=== PATIENT | male | born 1950 | race Caucasian/White ===

== ENCOUNTER 2024-05-08 11:37 | Inpatient (IN) | payer MEDICARE ==
[2024-05-08] MEDS: DEXTROSE 50% SYRINGE 50 ML IVP STA ×2 (11:40→13:37)
[2024-05-08 11:55] LABS: Glucose,Whole Blood 317 mg/dL (70-110)
[2024-05-08] MEDS: SODIUM CHLORIDE 0.9% 1,000 ML IV ONE ×3 (12:09→13:35)
[2024-05-08 12:16] LABS: Anisocytosis Slight; Basophils # (A) 0.1 k/uL (0-0.2); Basophils % (A) 1 %; Eosinophils # (A) 0.1 k/uL (0-0.7); Eosinophils % (A) 1 %; HCT 20.4 % (39.0-53.0); Hypochromasia Marked; Lymphocytes # (A) 2.5 k/uL (1.0-4.8); Lymphocytes % (A) 30 %; MCH 30.2 pg (25.0-35.0); MCHC 31.2 g/dL (31.0-37.0); MCV 96.8 fL (80.0-100.0); Mean Platelet Volume 12.2; Monocytes # (A) 0.3 k/uL (0-1.0); Monocytes % (A) 4 %; Neutrophils # (A) 5.4 k/uL (1.3-7.7); Neutrophils % (A) 63 %; Poikilocytosis Slight; RBC 2.11 m/uL (4.30-5.90); RDW 16.2 % (11.5-15.5); WBC 8.5 k/uL (3.8-10.6)
[2024-05-08 12:23] LABS: Albumin 2.9 g/dL (3.5-5.0); Alcohol 10 mg/dL; Anion Gap 26 mmol/L; Blood Urea Nitrogen 62 mg/dL (9-20); Calcium 8.9 mg/dL (8.4-10.2); Chloride 104 mmol/L (98-107); Glucose 263 mg/dL (74-99); Sodium 136 mmol/L (137-145); Total Bilirubin 2.8 mg/dL (0.2-1.3); Total Protein 4.6 g/dL (6.3-8.2)
[2024-05-08 12:25] LABS: ABG Base Excess -23.1 mmol/L; ABG PCO2 27 mmHg (35-45); ABG PO2 183 mmHg (83-108); ABG TCO2 7 mmol/L (19-24); Allen Test Performed? Yes
[2024-05-08 12:28] LABS: African American GFR (CKD) 26 (>60 ml/min/1.73 sqM); Non-African American GFR(CKD) 22 (>60 ml/min/1.73 sqM)
[2024-05-08 12:29] LABS: Glucose,Whole Blood 163 mg/dL (70-110)
[2024-05-08 12:33] LABS: ABG HCO3 6 mmol/L (21-25); ABG PH 6.98 (7.35-7.45)
[2024-05-08 12:35] LABS: INR 2.3 (<1.2); Partial Thromboplastin Time 29.8 sec (22.0-30.0); Prothrombin Time 22.9 sec (10.0-12.5)
[2024-05-08 12:42] LABS: HGB 6.4 gm/dL (13.0-17.5)
[2024-05-08 12:49] LABS: Bacteria,Urine Occasional /hpf; Mucus,Urine Rare /hpf; RBC,Urine 43 /hpf (0-5); Squamous Epithelial Cell,Urine 1 /hpf (0-4); WBC,Urine 5 /hpf (0-5)
[2024-05-08 13:01] LABS: ALT 666 U/L (4-49); AST 1113 U/L (17-59); Alkaline Phosphatase 939 U/L (38-126)
[2024-05-08 13:03] LABS: Carbon Dioxide 6 mmol/L (22-30); Creatine Kinase 4444 U/L (55-170); Magnesium 6.5 mg/dL (1.6-2.3); Potassium 6.9 mmol/L (3.5-5.1)
[2024-05-08 13:13] LABS: Amphetamine Screen,Urine Not Detected (NotDetected); Barbiturate Screen,Urine Not Detected (NotDetected); Benzodiazepines Screen,Urine Not Detected (NotDetected); Cocaine Screen,Urine Not Detected (NotDetected); Methadone Screen, Urine Not Detected (NotDetected); Opiate Screen,Urine Not Detected (NotDetected); Oxycodone Screen, Urine Not Detected (NotDetected); Phencyclidine Screen,Urine Not Detected (NotDetected); Tricyclic Antidepressant,Urine Not Detected (NotDetected); Urn Cannabinoid Scrn Not Detected (NotDetected)
[2024-05-08] MEDS: SODIUM CHLORIDE 0.9% 1,000 ML IV SCH (13:15)
[2024-05-08] MEDS: INSULIN REGULAR 100 UNIT in SODIUM CHLORIDE 0.9% 100 ML IV SCH (13:15)
[2024-05-08 13:17] LABS: Glucose,Whole Blood 145 mg/dL (70-110)
[2024-05-08 13:26] LABS: RBC Fragments Present
[2024-05-08 13:28] LABS: Anisocytosis (M) Present; Platelet Count 42 k/uL (150-450); Poikilocytosis (M) Present; Polychromasia Present
--- NOTE | 2024-05-08 13:33 | XR ---
EXAMINATION TYPE: XR chest 1V portable DATE OF EXAM: 05/08/2024 1:28 PM COMPARISON: None CLINICAL INDICATION: Male, 73 years old with history of unresponsive, pain FINDINGS: Leftward patient rotation alters the normal cardiac and mediastinal contours. Heart appears upper [place] its of normal. Diffuse interstitial and patchy bilateral opacities. IMPRESSION: Diffuse interstitial and patchy bilateral opacities. Consider sequela of CHF with interstitial pulmon gilberto edema versus interstitial pneumonitis or multifocal vs atypical pneumonia. [facility], Workstation: [email or web address], 05/08/2024 1:31 PM
--- NOTE | 2024-05-08 13:34 | ED ---
General Adult HPI - General Chief complaint: Recheck/Abnormal Lab/Rx Stated complaint: Hyperglycemia Time Seen by Provider: 05/08/24 11:37 Source: patient, EMS, RN notes reviewed, old records reviewed Mode of arrival: EMS - History of Present Illness Initial comments: This is a 73-year-old male who presents to the emergency department after having been found down by family members. According to the family the patient was last seen 2 days ago. Patient was unresponsive when family member arrived and family states that the patient is a DNR and does not want CPR or intubation. Patient has a history of a stroke according to family he takes no medication. - Related Data Home Medications Medication Instructions Recorded Confirmed No Known Home Medications 05/08/24 05/08/24 Allergies Allergy/AdvReac Type Severity Reaction Status Date / Time No Known Allergies Allergy Verified 05/08/24 15:16 Review of Systems ROS Statement: Those systems with pertinent positive or pertinent negative responses have been documented in the HPI. ROS Other: All systems not noted in ROS Statement are negative. Past Medical History Past Medical History: Unable to Obtain, CVA/TIA History of Any Multi-Drug Resistant Organisms: Unobtainable Additional Past Surgical History / Comment(s): AAA Past Psychological History: Unable to Obtain Smoking Status: Unknown if ever smoked General Exam - General Exam Comments Initial Comments: GENERAL: Patient is completely unresponsive and does appear somewhat cachectic ENT: Neck is soft and supple. No significant lymphadenopathy is noted. Oropharynx is clear. Dry mucous membranes. Neck has full range of motion without eliciting any pain. EYES: The sclera were anicteric and conjunctiva were pink and moist. Extraocular movements were intact and pupils were equal round and reactive to light. Eyelids were unremarkable. PULMONARY: Unlabored respirations. Good breath sounds bilaterally. No audible rales rhonchi or wheezing was noted. CARDIOVASCULAR: There is a regular rate and rhythm without any murmurs gallops or rubs. ABDOMEN: Soft and nontender with normal bowel sounds. SKIN: Patient has multiple bruises on his extremities NEUROLOGIC: Patient is unresponsive and was a GCS of 3 at the scene however he does at this time grimace to painful stimuli MUSCULOSKELETAL: Unable to assess range of motion of his extremities however no gross abnormalities are noted PSYCHIATRIC: Unable to do at this time Course Vital Signs 05/08/24 05/08/24 05/08/24 11:40 11:56 12:06 Temperature 84.7 F L Pulse Rate 88 68 63 Respiratory 22 20 Rate Blood Pressure 129/50 114/56 O2 Sat by Pulse Oximetry 05/08/24 05/08/24 05/08/24 12:17 12:30 13:10 Temperature 85.1 F L 85.3 F L 87.3 F L Pulse Rate 67 70 79 Respiratory 16 18 18 Rate Blood Pressure 77/57 85/67 63/36 O2 Sat by Pulse 99 Oximetry 05/08/24 05/08/24 05/08/24 13:15 13:35 13:47 Temperature 87.6 F L 89.4 F L 89.8 F L Pulse Rate 81 89 90 Respiratory 20 22 22 Rate Blood Pressure 73/37 55/32 75/52 O2 Sat by Pulse 94 L 93 L Oximetry 05/08/24 05/08/24 05/08/24 13:56 14:09 14:11 Temperature 90.5 F L 91.6 F L Pulse Rate 88 84 Respiratory 22 24 Rate Blood Pressure 83/50 71/39 67/41 O2 Sat by Pulse 94 L Oximetry 05/08/24 05/08/24 05/08/24 14:15 14:27 14:31 Temperature 92.3 F L 92.8 F L 93.2 F L Pulse Rate 87 98 95 Respiratory 22 22 22 Rate Blood Pressure 57/43 52/35 68/37 O2 Sat by Pulse 91 L Oximetry 05/08/24 05/08/24 05/08/24 14:35 14:41 14:46 Temperature 93.4 F L 93.9 F L 94.3 F L Pulse Rate 101 H 108 H 103 H Respiratory 22 22 20 Rate Blood Pressure 59/39 63/48 59/41 O2 Sat by Pulse 88 L 90 L 93 L Oximetry 05/08/24 05/08/24 05/08/24 14:51 14:56 15:01 Temperature 94.5 F L 95.0 F L 95.2 F L Pulse Rate 81 85 86 Respiratory 20 20 20 Rate Blood Pressure 106/50 108/55 112/56 O2 Sat by Pulse 93 L 94 L 94 L Oximetry 05/08/24 05/08/24 05/08/24 15:09 15:17 15:25 Temperature 96.3 F L Pulse Rate 88 90 92 Respiratory 18 18 18 Rate Blood Pressure 104/55 103/54 81/53 O2 Sat by Pulse 95 95 95 Oximetry 05/08/24 05/08/24 05/08/24 15:36 15:38 15:42 Temperature 97.5 F L Pulse Rate 95 Respiratory 18 Rate Blood Pressure 104/91 133/121 O2 Sat by Pulse 95 Oximetry 05/08/24 05/08/24 05/08/24 15:47 15:52 16:14 Temperature 97.7 F 97.7 F 99.0 F Pulse Rate 93 94 95 Respiratory 20 20 20 Rate Blood Pressure 92/50 94/49 89/48 O2 Sat by Pulse 95 95 95 Oximetry 05/08/24 16:27 Temperature 99.1 F Pulse Rate 96 Respiratory 20 Rate Blood Pressure 85/53 O2 Sat by Pulse 95 Oximetry Procedures - [place] Protocol (Time Out) Nurse: Farnaz Bishop Medical Decision Making - Medical Decision Making EKG is interpreted by myself. EKG shows atrial fibrillation at 72 bpm QRS is 96 QT interval is 473 QTc is 496. Patient's EKG shows no ST segment elevation. Was pt. sent in by a medical professional or institution (, PA, WATER/WASTEWATER PROJECT MANAGER, urgent care, hospital, or half-way...) When possible be specific @ -No Did you speak to anyone other than the patient for history (EMS, parent, family, police, friend...)? What history was obtained from this source @ -No Did you review nursing and triage notes (agree or disagree)? Why? @ -I reviewed and agree with nursing and triage notes Were old charts reviewed (outside hosp., previous admission, EMS record, old EKG, old radiological studies, urgent care reports/EKG's, half-way records)? Report findings @ -No old charts were reviewed Differential Diagnosis? @ -Differential Altered Mental Status: Hypoglycemia, DKA, hypercapnia, ETOH, overdose, CO poisoning, trauma, myxedema coma, HTN encephalopathy, infection, encephalitis, psychosis, intercranial hemorrhage, hepatic encephalopathy, meningitis, CVA, this is not meant to be an all-inclusive list EKG interpreted by me (3pts min.). @ -As above X-rays interpreted by me (1pt min.). @ -Chest x-ray shows no acute abnormality CT interpreted by me (1pt min.). @ -CT of the brain shows no acute abnormality. CT of the C-spine shows a T1 spinous process fracture. U/S interpreted by me (1pt. min.). @ -None done What testing was considered but not performed or refused? (CT, X-rays, U/S, labs)? Why? @ -None What meds were considered but not given or refused? Why? @ -None Did you discuss the management of the patient with other professionals (professionals i.e. , PA, WATER/WASTEWATER PROJECT MANAGER, lab, RT, psych nurse, 7th grade social studies teacher, customer servicer, teacher, artillery officer, outsole caser)? Give summary @ -Dr. Woods agreed to admit the patient. I spoke with Dr. Payan for critical care management. Was smoking cessation discussed for >3mins.? @ -No Was critical care preformed (if so, how long)? @ -60 minutes Were there social determinants of health that impacted care today? How? (Homele ssness, low income, unemployed, alcoholism, drug addiction, transportation, low edu. Level, literacy, decrease access to med. care, detention, rehab)? @ -No Was there de-escalation of care discussed even if they declined (Discuss DNR or withdrawal of care, Hospice)? DNR status @ -No What co-morbidities impacted this encounter? (DM, HTN, Smoking, COPD, CAD, Cancer, CVA, ARF, Chemo, Hep., AIDS, mental health diagnosis, sleep apnea, morbid obesity)? @ -None Was patient admitted / discharged? Hospital course, mention meds given and route, prescriptions, significant lab abnormalities, going to OR and other pertinent info. @ -Patient had numerous lab abnormalities patient had rhabdomyolysis, patient wa s anemic and was given 1 unit of packed red blood cells, patient was acidotic with a 6.9 pH, patient had elevated creatinine, patient was hypothermic and placed on a plane control with a bear hugger until the temperature came up to 90 degrees, patient was hypoglycemic end given multiple doses of D50, patient's troponin was mildly elevated, patient's liver enzymes and ammonia are elevated ammonia was 155 and was given lactulose, patient's lactic acid was 21, patient had thrombocytopenia with platelets of 42, patient's potassium was 6.9 and was given bicarb D50 insulin calcium chloride, patient's mag was 6.5 family states the patient has been drinking a lot of magnesium citrate. Family did not want the patient to be have CPR or to be intubated. Patient used to be a drinker but they do not believe he is drinking anymore. Patient was a GCS of 3 on arrival soon thereafter was responding to some painful stimuli after hours of being here patient was verbally responding to me however not make any sense at this time. CAT scans were normal except with his T1 fracture. Patient will be admitted to the ICU Undiagnosed new problem with uncertain prognosis? @ -No Drug Therapy requiring intensive monitoring for toxicity (Heparin, Nitro, Insulin, Cardizem)? @ -No Were any procedures done? @ -No Diagnosis/symptom? @ -Rhabdomyolysis Acute, or Chronic, or Acute on Chronic? @ -Acute Uncomplicated (without systemic symptoms) or Complicated (systemic symptoms)? @ -Complicated Side effects of treatment? @ -No Exacerbation, Progression, or Severe Exacerbation? @ -No Poses a threat to life or bodily function? How? (Chest pain, [place], HI, pneumonia, PE, COPD, DKA, ARF, appy, cholecystitis, CVA, Diverticulitis, Homicidal, Suicidal, threat to staff... and all critical care pts) @ -Yes this could lead to renal failure and endorgan dysfunction Diagnosis/symptom? @ -Anemia Acute, or Chronic, or Acute on Chronic? @ -Acute Uncomplicated (without systemic symptoms) or Complicated (systemic symptoms)? @ -Complicate Side effects of treatment? @ -None Exacerbation, Progression, or Severe Exacerbation] @ -No Poses a threat to life or bodily function? @ -Yes this could lead to hypoxia and endorgan dysfunction Diagnosis/symptom? @ -Hypothermic Acute, or Chronic, or Acute on Chronic? @ -Acute Uncomplicated (without systemic symptoms) or Complicated (systemic symptoms)? @ -Complicated Side effects of treatment? @ -None Exacerbation, Progression, or Severe Exacerbation] @ -No Poses a threat to life or bodily function? @ -Yes this can cause poor perfusion and Diagnosis/symptom? @ -Hypoglycemia Acute, or Chronic, or Acute on Chronic? @ -Acute Uncomplicated (without systemic symptoms) or Complicated (systemic symptoms)? @ -Complicated Side effects of treatment? @ -None Exacerbation, Progression, or Severe Exacerbation] @ -No Poses a threat to life or bodily function? @ -Yes this can cause electrolyte abnormalities EKG changes and hypoglycemia Diagnosis/symptom? @ -Elevated ammonia and elevated liver enzyme Acute, or Chronic, or Acute on Chronic? @ -Acute Uncomplicated (without systemic symptoms) or Complicated (systemic symptoms)? @ -Complicated Side effects of treatment? @ -None Exacerbation, Progression, or Severe Exacerbation] @ -No Poses a threat to life or bodily function? @ -Yes this can cause significant encephalopathy Diagnosis/symptom? @ -Hyperkalemia Acute, or Chronic, or Acute on Chronic? @ -Acute Uncomplicated (without systemic symptoms) or Complicated (systemic symptoms)? @ -Comp Side effects of treatment? @ -No Exacerbation, Progression, or Severe Exacerbation] @ -No Poses a threat to life or bodily function? @ -Also can cause arrhythmias and Diagnosis/symptom? @ -Hypermagnesemia Acute, or Chronic, or Acute on Chronic? @ -Acute Uncomplicated (without systemic symptoms) or Complicated (systemic symptoms)? @ -Complicated Side effects of treatment? @ -None Exacerbation, Progression, or Severe Exacerbation] @ -No Poses a threat to life or bodily function? @ -No Diagnosis/symptom? @ -Thrombocytopenia Acute, or Chronic, or Acute on Chronic? @ -Acute Uncomplicated (without systemic symptoms) or Complicated (systemic symptoms)? @ -complicated Side effects of treatment? @ -None Exacerbation, Progression, or Severe Exacerbation] @ -No Poses a threat to life or bodily function? @ -No Diagnosis/symptom? @ -T1 spinous process fracture Acute, or Chronic, or Acute on Chronic? @ -Acute Uncomplicated (without systemic symptoms) or Complicated (systemic symptoms)? @ -Uncomplicated Side effects of treatment? @ -None Exacerbation, Progression, or Severe Exacerbation] @ -No Poses a threat to life or bodily function? @ -No Diagnosis/symptom? @ -Lactic acidosis Acute, or Chronic, or Acute on Chronic? @ -Acute Uncomplicated (without systemic symptoms) or Complicated (systemic symptoms)? @ -Complicated Side effects of treatment? @ -None Exacerbation, Progression, or Severe Exacerbation] @ -No Poses a threat to life or bodily function? @ -No Lactic acidosis is elevated secondary to poor perfusion for prolonged downtime no infection at this time has been found - Lab Data Result diagrams: 05/08/24 11:55 05/08/24 11:55 Lab Results 05/08/24 05/08/24 05/08/24 Range/Units 11:54 11:55 11:55 WBC 8.5 (3.8-10.6) k/uL RBC 2.11 L (4.30-5.90) m/uL Hgb 6.4 L* (13.0-17.5) gm/dL Hct 20.4 L (39.0-53.0) % MCV 96.8 (80.0-100.0) fL MCH 30.2 (25.0-35.0) pg MCHC 31.2 (31.0-37.0) g/dL RDW 16.2 H (11.5-15.5) % Plt Count 42 L (150-450) k/uL MPV 12.2 Neutrophils % 63 % Lymphocytes % 30 % Monocytes % 4 % Eosinophils % 1 % Basophils % 1 % Neutrophils # 5.4 (1.3-7.7) k/uL Lymphocytes # 2.5 (1.0-4.8) k/uL Monocytes # 0.3 (0-1.0) k/uL Eosinophils # 0.1 (0-0.7) k/uL Basophils # 0.1 (0-0.2) k/uL Manual Slide Review Performed Polychromasia Present Hypochromasia Marked Poikilocytosis Slight Poikilocytosis (manual Present Anisocytosis Slight Anisocytosis (manual) Present Fragmented RBCs Present PT 22.9 H (10.0-12.5) sec INR 2.3 H (<1.2) APTT 29.8 (22.0-30.0) sec Sample Site ABG pH (7.35-7.45) ABG pCO2 (35-45) mmHg ABG pO2 (83-108) mmHg ABG HCO3 (21-25) mmol/L ABG Total CO2 (19-24) mmol/L ABG O2 Saturation (94-97) % ABG Base Excess mmol/L Devyn Test VBG pH (7.31-7.41) VBG pCO2 (37-51) mmHg VBG HCO3 (24-28) mmol/L Hemoglobin (13.0-17.5) gm/dL FiO2 % Sodium (137-145) mmol/L Potassium (3.5-5.1) mmol/L Chloride (98-107) mmol/L Carbon Dioxide (22-30) mmol/L Anion Gap mmol/L BUN (9-20) mg/dL Creatinine (0.66-1.25) mg/dL Est GFR (CKD-EPI)AfAm (>60 ml/min/1.73 sqM) Est GFR (CKD-EPI)NonAf (>60 ml/min/1.73 sqM) Glucose (74-99) mg/dL POC Glucose (mg/dL) 317 H (70-110) mg/dL POC Glu Furniture Delivery Driver ID Edna Osei Lactic Ac Sepsis Rflx Plasma Lactic Acid Addison (0.7-2.0) mmol/L Calcium (8.4-10.2) mg/dL Magnesium (1.6-2.3) mg/dL Total Bilirubin (0.2-1.3) mg/dL AST (17-59) U/L ALT (4-49) U/L Alkaline Phosphatase (38-126) U/L Ammonia (<30) umol/L Creatine Kinase (55-170) U/L Troponin I (0.000-0.034) ng/mL Total Protein (6.3-8.2) g/dL Albumin (3.5-5.0) g/dL Urine Color Urine Appearance (Clear) Urine pH (5.0-8.0) Ur Specific [place] (1.001-1.035) Urine Protein (Negative) Ur Protein Confirm Urine Glucose (UA) (Negative) Urine Ketones (Negative) Urine Blood (Negative) Urine Nitrite (Negative) Urine Bilirubin (Negative) Ur Bilirubin Confirm Urine Urobilinogen (<2.0) mg/dL Ur Leukocyte Esterase (Negative) Urine RBC (0-5) /hpf Urine WBC (0-5) /hpf Ur Squamous Epith Cells (0-4) /hpf Urine Bacteria (None) /hpf Urine Mucus (None) /hpf Urine Opiates Screen (NotDetected) Ur Oxycodone Screen (NotDetected) Urine Methadone Screen (NotDetected) Ur Barbiturates Screen (NotDetected) U Tricyclic Antidepress (NotDetected) Ur Phencyclidine Scrn (NotDetected) Ur Amphetamines Screen (NotDetected) U Methamphetamines Scrn (NotDetected) U Benzodiazepines Scrn (NotDetected) Urine Cocaine Screen (NotDetected) U Marijuana (THC) Screen (NotDetected) Serum Alcohol mg/dL Blood Type Blood Type Confirm Blood Type Recheck Bld Type Recheck Status Antibody Screen Crossmatch Spec Expiration Date 05/08/24 05/08/24 05/08/24 Range/Units 11:55 11:55 11:55 WBC (3.8-10.6) k/uL RBC (4.30-5.90) m/uL Hgb (13.0-17.5) gm/dL Hct (39.0-53.0) % MCV (80.0-100.0) fL MCH (25.0-35.0) pg MCHC (31.0-37.0) g/dL RDW (11.5-15.5) % Plt Count (150-450) k/uL MPV Neutrophils % % Lymphocytes % % Monocytes % % Eosinophils % % Basophils % % Neutrophils # (1.3-7.7) k/uL Lymphocytes # (1.0-4.8) k/uL Monocytes # (0-1.0) k/uL Eosinophils # (0-0.7) k/uL Basophils # (0-0.2) k/uL Manual Slide Review Polychromasia Hypochromasia Poikilocytosis Poikilocytosis (manual Anisocytosis Anisocytosis (manual) Fragmented RBCs PT (10.0-12.5) sec INR (<1.2) APTT (22.0-30.0) sec Sample Site ABG pH (7.35-7.45) ABG pCO2 (35-45) mmHg ABG pO2 (83-108) mmHg ABG HCO3 (21-25) mmol/L ABG Total CO2 (19-24) mmol/L ABG O2 Saturation (94-97) % ABG Base Excess mmol/L Devyn Test VBG pH (7.31-7.41) VBG pCO2 (37-51) mmHg VBG HCO3 (24-28) mmol/L Hemoglobin (13.0-17.5) gm/dL FiO2 % Sodium 136 L (137-145) mmol/L Potassium 6.9 H* (3.5-5.1) mmol/L Chloride 104 (98-107) mmol/L Carbon Dioxide 6 L* (22-30) mmol/L Anion Gap 26 mmol/L BUN 62 H (9-20) mg/dL Creatinine 2.76 H (0.66-1.25) mg/dL Est GFR (CKD-EPI)AfAm 26 (>60 ml/min/1.73 sqM) Est GFR (CKD-EPI)NonAf 22 (>60 ml/min/1.73 sqM) Glucose 263 H (74-99) mg/dL POC Glucose (mg/dL) (70-110) mg/dL POC Glu Furniture Delivery Driver ID Lactic Ac Sepsis Rflx Plasma Lactic Acid Addison (0.7-2.0) mmol/L Calcium 8.9 (8.4-10.2) mg/dL Magnesium 6.5 H* (1.6-2.3) mg/dL Total Bilirubin 2.8 H (0.2-1.3) mg/dL AST 1113 H (17-59) U/L ALT 666 H (4-49) U/L Alkaline Phosphatase 939 H (38-126) U/L Ammonia 151 H (<30) umol/L Creatine Kinase 4444 H* (55-170) U/L Troponin I 0.127 H* (0.000-0.034) ng/mL Total Protein 4.6 L (6.3-8.2) g/dL Albumin 2.9 L (3.5-5.0) g/dL Urine Color Urine Appearance (Clear) Urine pH (5.0-8.0) Ur Specific [place] (1.001-1.035) Urine Protein (Negative) Ur Protein Confirm Urine Glucose (UA) (Negative) Urine Ketones (Negative) Urine Blood (Negative) Urine Nitrite (Negative) Urine Bilirubin (Negative) Ur Bilirubin Confirm Urine Urobilinogen (<2.0) mg/dL Ur Leukocyte Esterase (Negative) Urine RBC (0-5) /hpf Urine WBC (0-5) /hpf Ur Squamous Epith Cells (0-4) /hpf Urine Bacteria (None) /hpf Urine Mucus (None) /hpf Urine Opiates Screen (NotDetected) Ur Oxycodone Screen (NotDetected) Urine Methadone Screen (NotDetected) Ur Barbiturates Screen (NotDetected) U Tricyclic Antidepress (NotDetected) Ur Phencyclidine Scrn (NotDetected) Ur Amphetamines Screen (NotDetected) U Methamphetamines Scrn (NotDetected) U Benzodiazepines Scrn (NotDetected) Urine Cocaine Screen (NotDetected) U Marijuana (THC) Screen (NotDetected) Serum Alcohol 10 mg/dL Blood Type Blood Type Confirm Blood Type Recheck Bld Type Recheck Status Antibody Screen Crossmatch Spec Expiration Date 05/08/24 05/08/24 05/08/24 Range/Units 12:12 12:22 12:22 WBC (3.8-10.6) k/uL RBC (4.30-5.90) m/uL Hgb (13.0-17.5) gm/dL Hct (39.0-53.0) % MCV (80.0-100.0) fL MCH (25.0-35.0) pg MCHC (31.0-37.0) g/dL RDW (11.5-15.5) % Plt Count (150-450) k/uL MPV Neutrophils % % Lymphocytes % % Monocytes % % Eosinophils % % Basophils % % Neutrophils # (1.3-7.7) k/uL Lymphocytes # (1.0-4.8) k/uL Monocytes # (0-1.0) k/uL Eosinophils # (0-0.7) k/uL Basophils # (0-0.2) k/uL Manual Slide Review Polychromasia Hypochromasia Poikilocytosis Poikilocytosis (manual Anisocytosis Anisocytosis (manual) Fragmented RBCs PT (10.0-12.5) sec INR (<1.2) APTT (22.0-30.0) sec Sample Site Right Radial ABG pH 6.98 L* (7.35-7.45) ABG pCO2 27 L (35-45) mmHg ABG pO2 183 H (83-108) mmHg ABG HCO3 6 L* (21-25) mmol/L ABG Total CO2 7 L (19-24) mmol/L ABG O2 Saturation 99.0 H (94-97) % ABG Base Excess -23.1 mmol/L Devyn Test Yes VBG pH (7.31-7.41) VBG pCO2 (37-51) mmHg VBG HCO3 (24-28) mmol/L Hemoglobin 5.5 L* (13.0-17.5) gm/dL FiO2 100 % Sodium (137-145) mmol/L Potassium (3.5-5.1) mmol/L Chloride (98-107) mmol/L Carbon Dioxide (22-30) mmol/L Anion Gap mmol/L BUN (9-20) mg/dL Creatinine (0.66-1.25) mg/dL Est GFR (CKD-EPI)AfAm (>60 ml/min/1.73 sqM) Est GFR (CKD-EPI)NonAf (>60 ml/min/1.73 sqM) Glucose (74-99) mg/dL POC Glucose (mg/dL) 163 H (70-110) mg/dL POC Glu Furniture Delivery Driver ID Josie Poole Lactic Ac Sepsis Rflx Plasma Lactic Acid Addison (0.7-2.0) mmol/L Calcium (8.4-10.2) mg/dL Magnesium (1.6-2.3) mg/dL Total Bilirubin (0.2-1.3) mg/dL AST (17-59) U/L ALT (4-49) U/L Alkaline Phosphatase (38-126) U/L Ammonia (<30) umol/L Creatine Kinase (55-170) U/L Troponin I (0.000-0.034) ng/mL Total Protein (6.3-8.2) g/dL Albumin (3.5-5.0) g/dL Urine Color Yellow Urine Appearance Turbid (Clear) Urine pH 7.0 (5.0-8.0) Ur Specific [place] 1.025 (1.001-1.035) Urine Protein 4+ H (Negative) Ur Protein Confirm Not Reportable Urine Glucose (UA) Negative (Negative) Urine Ketones Negative (Negative) Urine Blood 0.5 (Negative) Urine Nitrite Negative (Negative) Urine Bilirubin Negative (Negative) Ur Bilirubin Confirm Not Reportable Urine Urobilinogen <2.0 (<2.0) mg/dL Ur Leukocyte Esterase Negative (Negative) Urine RBC 43 H (0-5) /hpf Urine WBC 5 (0-5) /hpf Ur Squamous Epith Cells 1 (0-4) /hpf Urine Bacteria Occasional H (None) /hpf Urine Mucus Rare H (None) /hpf Urine Opiates Screen Not Detected (NotDetected) Ur Oxycodone Screen Not Detected (NotDetected) Urine Methadone Screen Not Detected (NotDetected) Ur Barbiturates Screen Not Detected (NotDetected) U Tricyclic Antidepress Not Detected (NotDetected) Ur Phencyclidine Scrn Not Detected (NotDetected) Ur Amphetamines Screen Not Detected (NotDetected) U Methamphetamines Scrn Not Detected (NotDetected) U Benzodiazepines Scrn Not Detected (NotDetected) Urine Cocaine Screen Not Detected (NotDetected) U Marijuana (THC) Screen Not Detected (NotDetected) Serum Alcohol mg/dL Blood Type Blood Type Confirm Blood Type Recheck Bld Type Recheck Status Antibody Screen Crossmatch Spec Expiration Date 05/08/24 05/08/24 05/08/24 Range/Units 12:45 12:50 13:13 WBC (3.8-10.6) k/uL RBC (4.30-5.90) m/uL Hgb (13.0-17.5) gm/dL Hct (39.0-53.0) % MCV (80.0-100.0) fL MCH (25.0-35.0) pg MCHC (31.0-37.0) g/dL RDW (11.5-15.5) % Plt Count (150-450) k/uL MPV Neutrophils % % Lymphocytes % % Monocytes % % Eosinophils % % Basophils % % Neutrophils # (1.3-7.7) k/uL Lymphocytes # (1.0-4.8) k/uL Monocytes # (0-1.0) k/uL Eosinophils # (0-0.7) k/uL Basophils # (0-0.2) k/uL Manual Slide Review Polychromasia Hypochromasia Poikilocytosis Poikilocytosis (manual Anisocytosis Anisocytosis (manual) Fragmented RBCs PT (10.0-12.5) sec INR (<1.2) APTT (22.0-30.0) sec Sample Site ABG pH (7.35-7.45) ABG pCO2 (35-45) mmHg ABG pO2 (83-108) mmHg ABG HCO3 (21-25) mmol/L ABG Total CO2 (19-24) mmol/L ABG O2 Saturation (94-97) % ABG Base Excess mmol/L Devyn Test VBG pH (7.31-7.41) VBG pCO2 (37-51) mmHg VBG HCO3 (24-28) mmol/L Hemoglobin (13.0-17.5) gm/dL FiO2 % Sodium (137-145) mmol/L Potassium (3.5-5.1) mmol/L Chloride (98-107) mmol/L Carbon Dioxide (22-30) mmol/L Anion Gap mmol/L BUN (9-20) mg/dL Creatinine (0.66-1.25) mg/dL Est GFR (CKD-EPI)AfAm (>60 ml/min/1.73 sqM) Est GFR (CKD-EPI)NonAf (>60 ml/min/1.73 sqM) Glucose (74-99) mg/dL POC Glucose (mg/dL) 145 H (70-110) mg/dL POC Glu Furniture Delivery Driver ID Edna Osei Lactic Ac Sepsis Rflx Plasma Lactic Acid Addison (0.7-2.0) mmol/L Calcium (8.4-10.2) mg/dL Magnesium (1.6-2.3) mg/dL Total Bilirubin (0.2-1.3) mg/dL AST (17-59) U/L ALT (4-49) U/L Alkaline Phosphatase (38-126) U/L Ammonia (<30) umol/L Creatine Kinase (55-170) U/L Troponin I (0.000-0.034) ng/mL Total Protein (6.3-8.2) g/dL Albumin (3.5-5.0) g/dL Urine Color Urine Appearance (Clear) Urine pH (5.0-8.0) Ur Specific [place] (1.001-1.035) Urine Protein (Negative) Ur Protein Confirm Urine Glucose (UA) (Negative) Urine Ketones (Negative) Urine Blood (Negative) Urine Nitrite (Negative) Urine Bilirubin (Negative) Ur Bilirubin Confirm Urine Urobilinogen (<2.0) mg/dL Ur Leukocyte Esterase (Negative) Urine RBC (0-5) /hpf Urine WBC (0-5) /hpf Ur Squamous Epith Cells (0-4) /hpf Urine Bacteria (None) /hpf Urine Mucus (None) /hpf Urine Opiates Screen (NotDetected) Ur Oxycodone Screen (NotDetected) Urine Methadone Screen (NotDetected) Ur Barbiturates Screen (NotDetected) U Tricyclic Antidepress (NotDetected) Ur Phencyclidine Scrn (NotDetected) Ur Amphetamines Screen (NotDetected) U Methamphetamines Scrn (NotDetected) U Benzodiazepines Scrn (NotDetected) Urine Cocaine Screen (NotDetected) U Marijuana (THC) Screen (NotDetected) Serum Alcohol mg/dL Blood Type O Positive Blood Type Confirm O Positive Blood Type Recheck No Previous Record Bld Type Recheck Status CABO Indicated Antibody Screen NEGATIVE Crossmatch See Detail Spec Expiration Date 05/11/2024234905/08/24 05/08/24 05/08/24 Range/Units 13:39 14:19 15:07 WBC (3.8-10.6) k/uL RBC (4.30-5.90) m/uL Hgb (13.0-17.5) gm/dL Hct (39.0-53.0) % MCV (80.0-100.0) fL MCH (25.0-35.0) pg MCHC (31.0-37.0) g/dL RDW (11.5-15.5) % Plt Count (150-450) k/uL MPV Neutrophils % % Lymphocytes % % Monocytes % % Eosinophils % % Basophils % % Neutrophils # (1.3-7.7) k/uL Lymphocytes # (1.0-4.8) k/uL Monocytes # (0-1.0) k/uL Eosinophils # (0-0.7) k/uL Basophils # (0-0.2) k/uL Manual Slide Review Polychromasia Hypochromasia Poikilocytosis Poikilocytosis (manual Anisocytosis Anisocytosis (manual) Fragmented RBCs PT (10.0-12.5) sec INR (<1.2) APTT (22.0-30.0) sec Sample Site ABG pH (7.35-7.45) ABG pCO2 (35-45) mmHg ABG pO2 (83-108) mmHg ABG HCO3 (21-25) mmol/L ABG Total CO2 (19-24) mmol/L ABG O2 Saturation (94-97) % ABG Base Excess mmol/L Devyn Test VBG pH (7.31-7.41) VBG pCO2 (37-51) mmHg VBG HCO3 (24-28) mmol/L Hemoglobin (13.0-17.5) gm/dL FiO2 % Sodium (137-145) mmol/L Potassium (3.5-5.1) mmol/L Chloride (98-107) mmol/L Carbon Dioxide (22-30) mmol/L Anion Gap mmol/L BUN (9-20) mg/dL Creatinine (0.66-1.25) mg/dL Est GFR (CKD-EPI)AfAm (>60 ml/min/1.73 sqM) Est GFR (CKD-EPI)NonAf (>60 ml/min/1.73 sqM) Glucose (74-99) mg/dL POC Glucose (mg/dL) 182 H (70-110) mg/dL POC Glu [employer] ID Mitul Moreno Lactic Ac Sepsis Rflx Y Plasma Lactic Acid Addison 21.9 H* (0.7-2.0) mmol/L Calcium (8.4-10.2) mg/dL Magnesium (1.6-2.3) mg/dL Total Bilirubin (0.2-1.3) mg/dL AST (17-59) U/L ALT (4-49) U/L Alkaline Phosphatase (38-126) U/L Ammonia (<30) umol/L Creatine Kinase (55-170) U/L Troponin I (0.000-0.034) ng/mL Total Protein (6.3-8.2) g/dL Albumin (3.5-5.0) g/dL Urine Color Urine Appearance (Clear) Urine pH (5.0-8.0) Ur Specific [place] (1.001-1.035) Urine Protein (Negative) Ur Protein Confirm Urine Glucose (UA) (Negative) Urine Ketones (Negative) Urine Blood (Negative) Urine Nitrite (Negative) Urine Bilirubin (Negative) Ur Bilirubin Confirm Urine Urobilinogen (<2.0) mg/dL Ur Leukocyte Esterase (Negative) Urine RBC (0-5) /hpf Urine WBC (0-5) /hpf Ur Squamous Epith Cells (0-4) /hpf Urine Bacteria (None) /hpf Urine Mucus (None) /hpf Urine Opiates Screen (NotDetected) Ur Oxycodone Screen (NotDetected) Urine Methadone Screen (NotDetected) Ur Barbiturates Screen (NotDetected) U Tricyclic Antidepress (NotDetected) Ur Phencyclidine Scrn (NotDetected) Ur Amphetamines Screen (NotDetected) U Methamphetamines Scrn (NotDetected) U Benzodiazepines Scrn (NotDetected) Urine Cocaine Screen (NotDetected) U Marijuana (THC) Screen (NotDetected) Serum Alcohol mg/dL Blood Type Blood Type Confirm Blood Type Recheck Bld Type Recheck Status Antibody Screen Crossmatch Spec Expiration Date 05/08/24 Range/Units 15:36 WBC (3.8-10.6) k/uL RBC (4.30-5.90) m/uL Hgb (13.0-17.5) gm/dL Hct (39.0-53.0) % MCV (80.0-100.0) fL MCH (25.0-35.0) pg MCHC (31.0-37.0) g/dL RDW (11.5-15.5) % Plt Count (150-450) k/uL MPV Neutrophils % % Lymphocytes % % Monocytes % % Eosinophils % % Basophils % % Neutrophils # (1.3-7.7) k/uL Lymphocytes # (1.0-4.8) k/uL Monocytes # (0-1.0) k/uL Eosinophils # (0-0.7) k/uL Basophils # (0-0.2) k/uL Manual Slide Review Polychromasia Hypochromasia Poikilocytosis Poikilocytosis (manual Anisocytosis Anisocytosis (manual) Fragmented RBCs PT (10.0-12.5) sec INR (<1.2) APTT (22.0-30.0) sec Sample Site ABG pH (7.35-7.45) ABG pCO2 (35-45) mmHg ABG pO2 (83-108) mmHg ABG HCO3 (21-25) mmol/L ABG Total CO2 (19-24) mmol/L ABG O2 Saturation (94-97) % ABG Base Excess mmol/L Devyn Test VBG pH 7.22 L (7.31-7.41) VBG pCO2 21 L (37-51) mmHg VBG HCO3 9 L* (24-28) mmol/L Hemoglobin (13.0-17.5) gm/dL FiO2 % Sodium (137-145) mmol/L Potassium (3.5-5.1) mmol/L Chloride (98-107) mmol/L Carbon Dioxide (22-30) mmol/L Anion Gap mmol/L BUN (9-20) mg/dL Creatinine (0.66-1.25) mg/dL Est GFR (CKD-EPI)AfAm (>60 ml/min/1.73 sqM) Est GFR (CKD-EPI)NonAf (>60 ml/min/1.73 sqM) Glucose (74-99) mg/dL POC Glucose (mg/dL) (70-110) mg/dL POC Glu Furniture Delivery Driver ID Lactic Ac Sepsis Rflx Plasma Lactic Acid Addison (0.7-2.0) mmol/L Calcium (8.4-10.2) mg/dL Magnesium (1.6-2.3) mg/dL Total Bilirubin (0.2-1.3) mg/dL AST (17-59) U/L ALT (4-49) U/L Alkaline Phosphatase (38-126) U/L Ammonia (<30) umol/L Creatine Kinase (55-170) U/L Troponin I (0.000-0.034) ng/mL Total Protein (6.3-8.2) g/dL Albumin (3.5-5.0) g/dL Urine Color Urine Appearance (Clear) Urine pH (5.0-8.0) Ur Specific [place] (1.001-1.035) Urine Protein (Negative) Ur Protein Confirm Urine Glucose (UA) (Negative) Urine Ketones (Negative) Urine Blood (Negative) Urine Nitrite (Negative) Urine Bilirubin (Negative) Ur Bilirubin Confirm Urine Urobilinogen (<2.0) mg/dL Ur Leukocyte Esterase (Negative) Urine RBC (0-5) /hpf Urine WBC (0-5) /hpf Ur Squamous Epith Cells (0-4) /hpf Urine Bacteria (None) /hpf Urine Mucus (None) /hpf Urine Opiates Screen (NotDetected) Ur Oxycodone Screen (NotDetected) Urine Methadone Screen (NotDetected) Ur Barbiturates Screen (NotDetected) U Tricyclic Antidepress (NotDetected) Ur Phencyclidine Scrn (NotDetected) Ur Amphetamines Screen (NotDetected) U Methamphetamines Scrn (NotDetected) U Benzodiazepines Scrn (NotDetected) Urine Cocaine Screen (NotDetected) U Marijuana (THC) Screen (NotDetected) Serum Alcohol mg/dL Blood Type Blood Type Confirm Blood Type Recheck Bld Type Recheck Status Antibody Screen Crossmatch Spec Expiration Date Disposition Clinical Impression: Anemia, Hyperammonemia, Hypermagnesemia, Hyperkalemia, Rhabdomyolysis, Lactic acidosis, Renal insufficiency, Thrombocytopenia, Hypothermia, Hypoglycemia Disposition: ADMITTED IP TO THIS HOSP Referrals: None,Stated [Primary Care Provider] - 1-2 days Time of Disposition: 16:16
[2024-05-08 13:38] LABS: Appearance,Urine Turbid (Clear); Bilirubin,Urine Negative (Negative); Blood,Urine 0.5 (Negative); Color,Urine Yellow; Glucose,Urine (UA) Negative (Negative); Ketones,Urine Negative (Negative); Protein,Urine 4+ (Negative); Specific Gravity,Urine 1.025 (1.001-1.035)
[2024-05-08 13:39] LABS: Leukocyte Esterase,Urine Negative (Negative); Nitrite,Urine Negative (Negative); Urobilinogen,Urine <2.0 mg/dL (<2.0)
--- NOTE | 2024-05-08 13:41 | CT ---
EXAMINATION TYPE: CT facial bones wo con, CT brain cspine wo con CT DLP: combined 1114.4 mGycm, Automated exposure control for dose reduction was used. DATE OF EXAM: 05/08/2024 1:25 PM COMPARISON: None. CLINICAL INDICATION:Male, 73 years old with history of Trauma; fall TECHNIQUE: Brain: Multiple axial CT images of the brain were obtained without IV contrast. Cspine: Axial CT images from the skull base to the inferior aspect of T2 we obtained without intraven ous contrast. Coronal and sagittal reformatted images were also reviewed. Facial bones; axial CT images of the facial bones were obtained without contrast and soft tissue and bone windows. Coronal and sagittal reformatted images were also reviewed. FINDINGS: Brain: Extra-axial spaces: No abnormal extra-axial fluid collections. Ventricular system: Within normal limits Cerebral parenchyma: Cerebral atrophy. No acute intraparenchymal hemorrhage or mass effect. The nieto -white junction is well differentiated. Scattered hypoattenuating areas are seen within the periventr icular white matter. Cerebellum: Unremarkable. Mass effect: No evidence of midline shift. Intracranial vasculature: Atherosclerotic calcifications of the intracranial vessels. Soft tissues: Mild left forehead soft tissue contusion. Calvarium: No depressed skull fracture. Paranasal sinuses and mastoid air cells: Minimal mucosal thickening of the right maxillary and left p osterior ethmoid sinuses. Remaining paranasal sinuses are clear. Mastoid air cells are clear. Visualized orbits: Orbital contents are intact. Cervical spine: Fracture: Acute mildly displaced T1 spinous process fracture. Osseous structures: Multilevel degenerative disc disease changes with endplate spurring and disc oste ophyte complex's. Very large anterior osteophytes at C4-C6. C1-C2 articulation degenerative changes. Patchy scattered sclerotic lesions involving the vertebral bodies of the cervical thoracic spine most prominently within the C5, T2 and T3 vertebral bodies. Additional regions of sclerosis identified wi thin the visualized thoracic ribs and bilateral scapula. Vertebral alignment: Mild degenerative retrolisthesis of C4 on C5. Grade 1 anterolisthesis of C7 on T 1. Spinal canal/Neural Foramina: Disc osteophyte complexes at C4-C5 and C5-C6 with at least mild spinal canal stenosis. Facet joint uncovertebral joint arthropathy scattered throughout the cervical spine w ith varying degrees of neural foraminal stenosis. Neck soft tissues: Prevertebral soft tissues are within normal limits. Other: The airway is patent. Bilateral carotid bulb calcifications. Emphysematous changes within the visualized bilateral apices. Facial Bones: There is no evidence of fracture, subluxation, or dislocation. Mild left forehead soft tissue contusi on. The orbital contents are unremarkable. The temporal-mandibular joints appear symmetric. Minimal m ucosal thickening of the right maxillary and left posterior ethmoid sinuses. Remaining paranasal sinu ses are clear. Mastoid air cells are clear. Nasal septal deviation to the left. IMPRESSION: 1. No acute intracranial process. 2. Nonspecific white matter changes, likely secondary to chronic small vessel ischemic disease. 3. No acute facial bone fracture. Mild left forehead soft tissue contusion. 4. Acute mildly displaced T1 spinous process fracture. 5. Moderate multilevel degenerative disc disease. 6. Mild degenerative retrolisthesis of C4 on C5. Grade 1 anterolisthesis of C7 on T1. 7. Scattered sclerotic osseous lesions within the visualized cervical spine, upper ribs, and bilater al scapula highly concerning for metastasis. Further workup is recommended. [facility], , 05/08/2024 1:38 PM
[2024-05-08] MEDS: INSULIN REGULAR 100 UNIT/ML VIAL (IV) IV ONE (13:45)
[2024-05-08] MEDS: CALCIUM CHLORIDE 100 MG/ML 10 ML SYRINGE IVP STA (13:47)
[2024-05-08] MEDS: HYDROCORTISONE SUCCINATE 100 MG/2 ML VIAL IV STA (13:55)
[2024-05-08] MEDS: SODIUM BICARB 8.4% 50 ML SYR (1 MEQ/ML) IV STA (14:00)
[2024-05-08] MEDS: DEXTROSE 5% IN WATER 1,000 ML with SODIUM BICARB (1 MEQ/ML) 150 ML IV SCH (14:04)
[2024-05-08] MEDS: NOREPINEPHRINE 4 MG in SODIUM CHLORIDE 0.9% 250 ML IV SCH (14:09)
[2024-05-08 15:20] LABS: Glucose,Whole Blood 182 mg/dL (70-110)
[2024-05-08 15:54] LABS: VBG PH 7.22 (7.31-7.41)
[2024-05-08 16:28] LABS: African American GFR (CKD) 24 (>60 ml/min/1.73 sqM); Albumin 2.8 g/dL (3.5-5.0); Alkaline Phosphatase 981 U/L (38-126); Anion Gap 27 mmol/L; Blood Urea Nitrogen 67 mg/dL (9-20); Calcium 8.8 mg/dL (8.4-10.2); Chloride 106 mmol/L (98-107); Glucose 147 mg/dL (74-99); Non-African American GFR(CKD) 20 (>60 ml/min/1.73 sqM); Sodium 140 mmol/L (137-145); Total Bilirubin 2.1 mg/dL (0.2-1.3); Total Protein 4.5 g/dL (6.3-8.2)
[2024-05-08] MEDS ORDERED: NALOXONE 0.4 MG/ML 1 ML VIAL IV PRN (16:29)
[2024-05-08 16:38] LABS: Carbon Dioxide 7 mmol/L (22-30); Magnesium 5.9 mg/dL (1.6-2.3); Potassium 6.1 mmol/L (3.5-5.1)
[2024-05-08 16:39] LABS: ALT 1433 U/L (4-49)
[2024-05-08 16:58] LABS: AST 2569 U/L (17-59)
[2024-05-08] MEDS: PIPERACILLIN-TAZOBACTAM 3.375 GM in SODIUM CHLORIDE 0.9% 100 ML IVPB SCH (17:50)
[2024-05-08] MEDS: LACTULOSE 200 GM/300 ML (FROM 1/2 GAL JUG) RECTAL SCH (18:23)
--- NOTE | 2024-05-08 20:08 | P.HPIM ---
History of Present Illness This is a 73 years old male With past medical history is limited currently. Presents because he was found on the floor by his family. Multiple family members at bedside including his sister. Who states at home he lives alone, he uses a walker with a seat to transfer from 1 room to another. Last seen fine was Wednesday about 2 days ago at 3:30 PM when they talked on the phone Patient has lately been complaining from constipation and he has been drinking a lot of magnesium citrate to help his bowel movement He smokes unknown amount, his sister thinks about half pack per day, he used to drink, but currently unknown maybe he quit per family. No illicit drugs Patient was found on the floor by family members and brought to emergency room. Patient is hypothermic and Alejo hugger is applied also is hypotensive received several boluses and tachypneic and hypoxic. Currently on 6 L oxygen via nasal cannula He has abnormal labs, WBC normal at 8.6, hemoglobin low 6.4 and he is getting unit of blood transfusion, platelet count is low at 47 Creatinine elevated 2.9 potassium-6.1 AST is high at 2569 and ALT 1433 and bilirubin 2.1, INR is 2.3. EKG showing A-fib with a rate of 72 pH is low 7.2 and pCO2 low 27 Chest x-ray showing bilateral infiltrates suspicious for CHF versus pneumonia versus atypical infection Head and cervical CT is negative for acute intracranial process, showing chronic changes of the white matter. 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, CVA/TIA History of Any Multi-Drug Resistant Organisms: Unobtainable Additional Past Surgical History / Comment(s): AAA Past Psychological History: Unable to Obtain Smoking Status: Unknown if ever smoked Medications and Allergies Home Medications Medication Instructions Recorded Confirmed Type No Known Home Medications 05/08/24 05/08/24 History Allergies Allergy/AdvReac Type Severity Reaction Status Date / Time No Known Allergies Allergy Verified 05/08/24 15:16 Physical Exam Vitals: Vital Signs Temp Pulse Resp BP Pulse Ox 05/08/24 19:02 95.9 F L 98 24 90/46 97 05/08/24 18:30 98 24 99/59 96 05/08/24 18:00 115 H 22 93/51 94 L 05/08/24 17:35 98.8 F 115 H 22 86/54 95 05/08/24 17:31 97.5 F L 115 H 22 87/49 96 05/08/24 17:23 97.3 F L 115 H 24 90/50 96 05/08/24 17:04 98.8 F 117 H 24 83/49 96 05/08/24 16:27 99.1 F 96 20 85/53 95 05/08/24 16:14 99.0 F 95 20 89/48 95 05/08/24 15:52 97.7 F 94 20 94/49 95 05/08/24 15:47 97.7 F 93 20 92/50 95 05/08/24 15:42 133/121 05/08/24 15:38 97.5 F L 05/08/24 15:36 95 18 104/91 95 05/08/24 15:25 92 18 81/53 95 05/08/24 15:17 96.3 F L 90 18 103/54 95 05/08/24 15:09 88 18 104/55 95 05/08/24 15:01 95.2 F L 86 20 112/56 94 L 05/08/24 14:56 95.0 F L 85 20 108/55 94 L 05/08/24 14:51 94.5 F L 81 20 106/50 93 L 05/08/24 14:46 94.3 F L 103 H 20 59/41 93 L 05/08/24 14:41 93.9 F L 108 H 22 63/48 90 L 05/08/24 14:35 93.4 F L 101 H 22 59/39 88 L 05/08/24 14:31 93.2 F L 95 22 68/37 91 L 05/08/24 14:27 92.8 F L 98 22 52/35 05/08/24 14:15 92.3 F L 87 22 57/43 05/08/24 14:11 67/41 05/08/24 14:09 91.6 F L 84 24 71/39 05/08/24 13:56 90.5 F L 88 22 83/50 94 L 05/08/24 13:47 89.8 F L 90 22 75/52 93 L 05/08/24 13:35 89.4 F L 89 22 55/32 94 L 05/08/24 13:15 87.6 F L 81 20 73/37 05/08/24 13:10 87.3 F L 79 18 63/36 05/08/24 12:30 85.3 F L 70 18 85/67 99 05/08/24 12:17 85.1 F L 67 16 77/57 05/08/24 12:06 84.7 F L 63 20 114/56 05/08/24 11:56 68 05/08/24 11:40 88 22 129/50 Intake and Output 05/08/24 05/08/24 05/08/24 06:59 14:59 22:59 Intake Total 11.234 510.831 Output Total 100 Balance 11.234 410.831 Intake: Intake, IV Titration 11.234 230.831 Amount Norepinephrine 4 mg In 11.234 230.831 Sodium Chloride 0.9% 250 ml @ 0.03 MCG/KG/MIN 7. 518 mls/hr IV .Q24H [facility] Rx#:[id number] Blood Product 0 280 Rc Pheresis 2 As3 Unit 0 280 [id number] Output: Urine 100 Uretheral (Braun) 100 Other: Weight 65.771 kg -GENERAL: Patient is confused, nonverbal, obtunded and does not follow command. Thin built HEENT: Pupils are round and equally reacting to light. EOMI. No scleral icterus. No conjunctival pallor. Normocephalic, atraumatic. No pharyngeal erythema. No thyromegaly. CARDIOVASCULAR: S1 and S2 present. No murmurs, rubs, or gallops. PULMONARY: Chest is clear to auscultation, no wheezing , no crackles. ABDOMEN: Soft, nontender, nondistended, normoactive bowel sounds. No palpable organomegaly. MUSCULOSKELETAL: No joint swelling or deformity. EXTREMITIES: No cyanosis, clubbing, or pedal edema. NEUROLOGICAL: Gross neurological examination did not reveal any focal deficits. SKIN: No rashes. no petechiae. Results CBC & Chem 7: 05/08/24 11:55 05/08/24 15:36 Labs: Abnormal Lab Results - Last 24 Hours (Table) 05/08/24 05/08/24 05/08/24 Range/Units 11:54 11:55 11:55 RBC 2.11 L (4.30-5.90) m/uL Hgb 6.4 L* (13.0-17.5) gm/dL Hct 20.4 L (39.0-53.0) % RDW 16.2 H (11.5-15.5) % Plt Count 42 L (150-450) k/uL PT 22.9 H (10.0-12.5) sec INR 2.3 H (<1.2) ABG pH (7.35-7.45) ABG pCO2 (35-45) mmHg ABG pO2 (83-108) mmHg ABG HCO3 (21-25) mmol/L ABG Total CO2 (19-24) mmol/L ABG O2 Saturation (94-97) % VBG pH (7.31-7.41) VBG pCO2 (37-51) mmHg VBG HCO3 (24-28) mmol/L Hemoglobin (13.0-17.5) gm/dL Sodium (137-145) mmol/L Potassium (3.5-5.1) mmol/L Carbon Dioxide (22-30) mmol/L BUN (9-20) mg/dL Creatinine (0.66-1.25) mg/dL Glucose (74-99) mg/dL POC Glucose (mg/dL) 317 H (70-110) mg/dL Plasma Lactic Acid Addison (0.7-2.0) mmol/L Magnesium (1.6-2.3) mg/dL Total Bilirubin (0.2-1.3) mg/dL AST (17-59) U/L ALT (4-49) U/L Alkaline Phosphatase (38-126) U/L Ammonia (<30) umol/L Creatine Kinase (55-170) U/L Troponin I (0.000-0.034) ng/mL Total Protein (6.3-8.2) g/dL Albumin (3.5-5.0) g/dL Urine Protein (Negative) Urine RBC (0-5) /hpf Urine Bacteria (None) /hpf Urine Mucus (None) /hpf Crossmatch 05/08/24 05/08/24 05/08/24 Range/Units 11:55 11:55 11:55 RBC (4.30-5.90) m/uL Hgb (13.0-17.5) gm/dL Hct (39.0-53.0) % RDW (11.5-15.5) % Plt Count (150-450) k/uL PT (10.0-12.5) sec INR (<1.2) ABG pH (7.35-7.45) ABG pCO2 (35-45) mmHg ABG pO2 (83-108) mmHg ABG HCO3 (21-25) mmol/L ABG Total CO2 (19-24) mmol/L ABG O2 Saturation (94-97) % VBG pH (7.31-7.41) VBG pCO2 (37-51) mmHg VBG HCO3 (24-28) mmol/L Hemoglobin (13.0-17.5) gm/dL Sodium 136 L (137-145) mmol/L Potassium 6.9 H* (3.5-5.1) mmol/L Carbon Dioxide 6 L* (22-30) mmol/L BUN 62 H (9-20) mg/dL Creatinine 2.76 H (0.66-1.25) mg/dL Glucose 263 H (74-99) mg/dL POC Glucose (mg/dL) (70-110) mg/dL Plasma Lactic Acid Addison (0.7-2.0) mmol/L Magnesium 6.5 H* (1.6-2.3) mg/dL Total Bilirubin 2.8 H (0.2-1.3) mg/dL AST 1113 H (17-59) U/L ALT 666 H (4-49) U/L Alkaline Phosphatase 939 H (38-126) U/L Ammonia 151 H (<30) umol/L Creatine Kinase 4444 H* (55-170) U/L Troponin I 0.127 H* (0.000-0.034) ng/mL Total Protein 4.6 L (6.3-8.2) g/dL Albumin 2.9 L (3.5-5.0) g/dL Urine Protein (Negative) Urine RBC (0-5) /hpf Urine Bacteria (None) /hpf Urine Mucus (None) /hpf Crossmatch 05/08/24 05/08/24 05/08/24 Range/Units 12:12 12:22 12:22 RBC (4.30-5.90) m/uL Hgb (13.0-17.5) gm/dL Hct (39.0-53.0) % RDW (11.5-15.5) % Plt Count (150-450) k/uL PT (10.0-12.5) sec INR (<1.2) ABG pH 6.98 L* (7.35-7.45) ABG pCO2 27 L (35-45) mmHg ABG pO2 183 H (83-108) mmHg ABG HCO3 6 L* (21-25) mmol/L ABG Total CO2 7 L (19-24) mmol/L ABG O2 Saturation 99.0 H (94-97) % VBG pH (7.31-7.41) VBG pCO2 (37-51) mmHg VBG HCO3 (24-28) mmol/L Hemoglobin 5.5 L* (13.0-17.5) gm/dL Sodium (137-145) mmol/L Potassium (3.5-5.1) mmol/L Carbon Dioxide (22-30) mmol/L BUN (9-20) mg/dL Creatinine (0.66-1.25) mg/dL Glucose (74-99) mg/dL POC Glucose (mg/dL) 163 H (70-110) mg/dL Plasma Lactic Acid Addison (0.7-2.0) mmol/L Magnesium (1.6-2.3) mg/dL Total Bilirubin (0.2-1.3) mg/dL AST (17-59) U/L ALT (4-49) U/L Alkaline Phosphatase (38-126) U/L Ammonia (<30) umol/L Creatine Kinase (55-170) U/L Troponin I (0.000-0.034) ng/mL Total Protein (6.3-8.2) g/dL Albumin (3.5-5.0) g/dL Urine Protein 4+ H (Negative) Urine RBC 43 H (0-5) /hpf Urine Bacteria Occasional H (None) /hpf Urine Mucus Rare H (None) /hpf Crossmatch 05/08/24 05/08/24 05/08/24 Range/Units 12:50 13:13 13:39 RBC (4.30-5.90) m/uL Hgb (13.0-17.5) gm/dL Hct (39.0-53.0) % RDW (11.5-15.5) % Plt Count (150-450) k/uL PT (10.0-12.5) sec INR (<1.2) ABG pH (7.35-7.45) ABG pCO2 (35-45) mmHg ABG pO2 (83-108) mmHg ABG HCO3 (21-25) mmol/L ABG Total CO2 (19-24) mmol/L ABG O2 Saturation (94-97) % VBG pH (7.31-7.41) VBG pCO2 (37-51) mmHg VBG HCO3 (24-28) mmol/L Hemoglobin (13.0-17.5) gm/dL Sodium (137-145) mmol/L Potassium (3.5-5.1) mmol/L Carbon Dioxide (22-30) mmol/L BUN (9-20) mg/dL Creatinine (0.66-1.25) mg/dL Glucose (74-99) mg/dL POC Glucose (mg/dL) 145 H (70-110) mg/dL Plasma Lactic Acid Addison 21.9 H* (0.7-2.0) mmol/L Magnesium (1.6-2.3) mg/dL Total Bilirubin (0.2-1.3) mg/dL AST (17-59) U/L ALT (4-49) U/L Alkaline Phosphatase (38-126) U/L Ammonia (<30) umol/L Creatine Kinase (55-170) U/L Troponin I (0.000-0.034) ng/mL Total Protein (6.3-8.2) g/dL Albumin (3.5-5.0) g/dL Urine Protein (Negative) Urine RBC (0-5) /hpf Urine Bacteria (None) /hpf Urine Mucus (None) /hpf Crossmatch See Detail 05/08/24 05/08/24 05/08/24 Range/Units 15:07 15:36 15:36 RBC (4.30-5.90) m/uL Hgb (13.0-17.5) gm/dL Hct (39.0-53.0) % RDW (11.5-15.5) % Plt Count (150-450) k/uL PT (10.0-12.5) sec INR (<1.2) ABG pH (7.35-7.45) ABG pCO2 (35-45) mmHg ABG pO2 (83-108) mmHg ABG HCO3 (21-25) mmol/L ABG Total CO2 (19-24) mmol/L ABG O2 Saturation (94-97) % VBG pH 7.22 L (7.31-7.41) VBG pCO2 21 L (37-51) mmHg VBG HCO3 9 L* (24-28) mmol/L Hemoglobin (13.0-17.5) gm/dL Sodium (137-145) mmol/L Potassium 6.1 H* (3.5-5.1) mmol/L Carbon Dioxide 7 L* (22-30) mmol/L BUN 67 H (9-20) mg/dL Creatinine 2.96 H (0.66-1.25) mg/dL Glucose 147 H (74-99) mg/dL POC Glucose (mg/dL) 182 H (70-110) mg/dL Plasma Lactic Acid Addison (0.7-2.0) mmol/L Magnesium 5.9 H* (1.6-2.3) mg/dL Total Bilirubin 2.1 H (0.2-1.3) mg/dL AST 2569 H (17-59) U/L ALT 1433 H (4-49) U/L Alkaline Phosphatase 981 H (38-126) U/L Ammonia (<30) umol/L Creatine Kinase (55-170) U/L Troponin I (0.000-0.034) ng/mL Total Protein 4.5 L (6.3-8.2) g/dL Albumin 2.8 L (3.5-5.0) g/dL Urine Protein (Negative) Urine RBC (0-5) /hpf Urine Bacteria (None) /hpf Urine Mucus (None) /hpf Crossmatch 05/08/24 Range/Units 16:50 RBC (4.30-5.90) m/uL Hgb (13.0-17.5) gm/dL Hct (39.0-53.0) % RDW (11.5-15.5) % Plt Count (150-450) k/uL PT (10.0-12.5) sec INR (<1.2) ABG pH (7.35-7.45) ABG pCO2 (35-45) mmHg ABG pO2 (83-108) mmHg ABG HCO3 (21-25) mmol/L ABG Total CO2 (19-24) mmol/L ABG O2 Saturation (94-97) % VBG pH (7.31-7.41) VBG pCO2 (37-51) mmHg VBG HCO3 (24-28) mmol/L Hemoglobin (13.0-17.5) gm/dL Sodium (137-145) mmol/L Potassium (3.5-5.1) mmol/L Carbon Dioxide (22-30) mmol/L BUN (9-20) mg/dL Creatinine (0.66-1.25) mg/dL Glucose (74-99) mg/dL POC Glucose (mg/dL) (70-110) mg/dL Plasma Lactic Acid Addison 18.0 H* (0.7-2.0) mmol/L Magnesium (1.6-2.3) mg/dL Total Bilirubin (0.2-1.3) mg/dL AST (17-59) U/L ALT (4-49) U/L Alkaline Phosphatase (38-126) U/L Ammonia (<30) umol/L Creatine Kinase (55-170) U/L Troponin I (0.000-0.034) ng/mL Total Protein (6.3-8.2) g/dL Albumin (3.5-5.0) g/dL Urine Protein (Negative) Urine RBC (0-5) /hpf Urine Bacteria (None) /hpf Urine Mucus (None) /hpf Crossmatch Assessment and Plan Assessment: Altered mental status with metabolic encephalopathy, associated with possible hepatic encephalopathy Severe sepsis and septic shock suspicious for pneumonia versus other Bilateral pulmonary infiltrates suspicious for pneumonia, differential diagnosis CHF and ARDS Acute hypoxic respiratory failure Patient found on the floor for unknown period, could be up to 2 days with rhabdomyolysis Multiple osseous lesion suspicious for metastatic disease involving the cervical spines, multiple ribs and bilateral scapulae, unknown source Metabolic acidosis Acute renal failure with hyperkalemia Lactic acidosis Severe anemia requiring blood transfusion associated with severe thrombocytopenia Coagulopathy A-fib with controlled rate Plan: Patient received several boluses of normal saline Started on antibiotic Zosyn Given rectal lactulose Also required pressors with Levophed with close monitoring of blood pressure Follow-up INR and lactic acid and other labs Patient is high risk for bleeding and thrombosis Patient is going to be admitted to the ICU with critical team, consult Monitor of labs Patient is also high risk of intracranial lesion metastatic or bleeding Patient will require further workup for the source of cancer if any Prognosis is very guarded I talked to the family they told me the patient wishes is not to be re suscitated. Currently he is DNR/DNI. Also the family have limited plan of care to provide what he needs, if patient does not respond well to treatment which is a possibility given his severity and complicated and delay in his presentation and starting treatment, family would agree with more hospice care
[2024-05-08 20:59] LABS: Basophils # (A) 0.1 k/uL (0-0.2); Basophils % (A) 1 %; Eosinophils % (A) 0 %; HCT 22.4 % (39.0-53.0); HGB 7.5 gm/dL (13.0-17.5); Hypochromasia Slight; Lymphocytes # (A) 1.3 k/uL (1.0-4.8); Lymphocytes % (A) 31 %; MCH 30.8 pg (25.0-35.0); MCHC 33.3 g/dL (31.0-37.0); MCV 92.6 fL (80.0-100.0); Mean Platelet Volume 12.1; Monocytes # (A) 0.3 k/uL (0-1.0); Monocytes % (A) 7 %; Neutrophils # (A) 2.4 k/uL (1.3-7.7); Neutrophils % (A) 58 %; RBC 2.42 m/uL (4.30-5.90); RDW 15.9 % (11.5-15.5); WBC 4.1 k/uL (3.8-10.6)
[2024-05-08 21:05] LABS: Platelet Count 37 k/uL (150-450)
[2024-05-08 21:15] VITALS: TEMP 38.4
[2024-05-08 21:25] LABS: Glucose,Whole Blood 44 mg/dL (70-110)
[2024-05-08 21:35] LABS: ABG HCO3 15 mmol/L (21-25); ABG Oxygen Saturation 71.7 % (94-97); ABG PCO2 48 mmHg (35-45); ABG TCO2 16 mmol/L (19-24); Allen Test Performed? Yes
--- NOTE | 2024-05-08 21:37 | CT ---
EXAMINATION TYPE: CT abdomen pelvis wo con CT DLP: 647.5 mGycm, Automated exposure control for dose reduction was used. DATE OF EXAM: 05/08/2024 8:38 PM COMPARISON: CT abdomen pelvis most recent from CLINICAL INDICATION:Male, 73 years old with history of possible bleed; Possible GI bleed. TECHNIQUE: Axial CT abdomen pelvis wo con;Sagittal and coronal reformats were created on a separate workstation. Contrast used: mL of , (none if empty) Oral contrast used: without Oral Contrast (none if empty) FINDINGS: LOWER CHEST: Bibasilar atelectasis with possible small areas of consolidation in the left lower lung ABDOMEN LIVER: Grossly unremarkable. GALLBLADDER AND BILE DUCTS: Grossly unremarkable. PANCREAS: Atrophic. SPLEEN: Grossly unremarkable. ADRENAL GLANDS: Grossly unremarkable. KIDNEYS AND URETERS: Moderate left hydroureteronephrosis. The left proximal ureter is dilated without any evidence for calculi however the mid to distal aspects of the left and right ureters are poorly visualized. No right hydronephrosis. PELVIS BLADDER: Braun catheter is noted within a decompressed urinary bladder. REPRODUCTIVE: Grossly unremarkable ABDOMEN & PELVIS STOMACH AND BOWEL: The stomach is poorly visualized which may be due to underdistention. There are mu ltiple loops gas distended small bowel seen throughout the abdomen measuring up to 3.2 cm in some are as. There is diffuse gaseous distention of the large bowel most pronounced involving the transverse a nd descending colon. There is some nondependent foci of air seen in the area of the large bowel wall which may represent pneumatosis. It is difficult to discern evidence of a transition point to suggest a focal obstruction. Attenuated contents are seen in the distal large bowel and sigmoid colon which may reflect recent oral contrast versus enteric contents. Rectal tube is in place. Please note that e xam is limited for evaluation of gastric intestinal hemorrhage on a noncontrasted study. PERITONEUM/RETROPERITONEUM: No evidence of pneumoperitoneum. Trace free fluid noted throughout the ab domen and pelvis. VASCULATURE: There is focal fusiform dilatation involving the infrarenal abdominal aorta measuring at least 4.5 cm. There is advanced atherosclerotic disease involving the aorta and its branches. Aortic endograft is present. An aortic biiliac graft is present extending into the common iliac arteries an d distal branches. In the area of the left internal iliac artery and branches there are scattered met allic foci which may represent embolization coils versus other material. MUSCULOSKELETAL: No acute fractures. There is diffusely mottled sclerotic appearance of the visualize d osseous structures. LYMPH NODES: No gross evidence for lymphadenopathy. SOFT TISSUE/ABDOMINAL WALL: Diffuse soft tissue edema. IMPRESSION: Please note that absence of contrast on exam limits evaluation for gastrointestinal hemorrhage. 1. Small areas of consolidation within the left lung may represent an acute infectious/inflammatory p rocess. Correlate with clinical evaluation. 2. Diffusely dilated gas-filled loops of small and large bowel are concerning for ileus versus bowel obstruction. No discrete transition point could be identified on this limited evaluation. Small area of pneumatosis is suggested involving the ascending colon. 3. Moderate left hydroureteronephrosis is appreciated without obvious obstructive lesion or calculus. There is limited evaluation of the mid and distal ureters bilaterally. No right hydronephrosis. 4. Trace free fluid and moderate diffuse anasarca. 5. Fusiform aneurysmal dilatation of the infrarenal abdominal aorta seen measuring at least 4.5 cm. 6. Diffuse mottled sclerotic appearance of the osseous structures may represent sequela of renal oste odystrophy versus metastatic osseous disease. Correlate with any known history. [facility], , 05/08/2024 9:35 PM
[2024-05-08 21:39] LABS: Glucose,Whole Blood 169 mg/dL (70-110)
[2024-05-08 21:40] LABS: ABG PH 7.09 (7.35-7.45); ABG PO2 52 mmHg (83-108)
--- NOTE | 2024-05-08 21:52 | P.CNPUL ---
History of Present Illness Consult date: 05/08/24 Chief complaint: Altered mental status History of present illness: 73-year-old male patient followed on the floor by family noted to the hospital. Mental status is altered and the patient is unable to provide any history. Last seen or talk to my other family members was 2 days ago as he was checked on over the phone. He has been having issues with chronic constipation the patient has been taking magnesium citrate to help with bowel movement activity. He presented to the emergency with hypothermia, acute kidney injury, acute rhabdomyolysis, acute hypoxic respiratory failure, altered mentation. He is initial temperature was 85.1 F. His white cell count was at 8.5 with a hemoglobin of 6.4 and a platelet count of 42. Coagulopathic with an INR of 2.3 and a PT of 22.9 and a PTT of 29. Sodium was at 136 with a potassium level of 6.9, BUN 62 with a creatinine of 0.6. Glucose was 317. LFTs were elevated and serum ammonia level was at 151. CPK was 4444. Troponin was 0.1. Albumin level was at 2.9. UA was positive for plus for protein and 5 WBCs. Urine x-ray was negative. Alcohol level was negative. Chest x-ray showed interstitial and alveolar infiltrates bilaterally, diffuse and multiple CT scan of the head and cervical spine reviewed still no acute intracranial process and there is nonspecific white matter changes likely secondary to possible ischemic change. No evidence of any facial fracture. Moderate multilevel degenerative disease. Scattered sclerosis of the bone involving the cervical spine and upper ribs and bilateral scapula raising concern for metastatic disease. Hide CAT scan of the abdomen and pelvis is in progress.The patient also was severely acidotic. Lactic acid level was as 21, downtrending but the blood gas showed an AHI of 6.9 with a pCO2 of 27 and a pO2 of 183 minutes with FiO2 of 100%. Serum 15 L of oxygen by nasal cannula. The patient is receiving external warming. The patient is currently resuscitated IV fluids with a total of 3 L of normal saline and the patient is currently on a bicarb infusion. Patient is also on pressors currently on high- dose norepinephrine at 0.3 mcg/kg/min. Empiric antibiotic coverage with IV Zosyn. Also received a unit of packed RBC transfusion. 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, CVA/TIA History of Any Multi-Drug Resistant Organisms: Unobtainable Additional Past Surgical History / Comment(s): AAA Past Psychological History: Unable to Obtain Smoking Status: Unknown if ever smoked Medications and Allergies Home Medications Medication Instructions Recorded Confirmed Type No Known Home Medications 05/08/24 05/08/24 History Allergies Allergy/AdvReac Type Severity Reaction Status Date / Time No Known Allergies Allergy Verified 05/08/24 15:16 Physical Exam Vitals: Vital Signs Temp Pulse Resp BP Pulse Ox 05/08/24 21:12 38.4 F L 67 26 H 81/50 91 L 05/08/24 20:45 38.3 F L 105 H 30 H 78/53 194 H 05/08/24 20:39 105 H 89/40 05/08/24 20:38 111/46 05/08/24 20:12 151/106 05/08/24 20:10 105 H 162/123 05/08/24 19:02 95.9 F L 98 24 90/46 97 05/08/24 18:30 98 24 99/59 96 05/08/24 18:00 115 H 22 93/51 94 L 05/08/24 17:35 98.8 F 115 H 22 86/54 95 05/08/24 17:31 97.5 F L 115 H 22 87/49 96 05/08/24 17:23 97.3 F L 115 H 24 90/50 96 05/08/24 17:04 98.8 F 117 H 24 83/49 96 05/08/24 16:27 99.1 F 96 20 85/53 95 05/08/24 16:14 99.0 F 95 20 89/48 95 05/08/24 15:52 97.7 F 94 20 94/49 95 05/08/24 15:47 97.7 F 93 20 92/50 95 05/08/24 15:42 133/121 05/08/24 15:38 97.5 F L 05/08/24 15:36 95 18 104/91 95 05/08/24 15:25 92 18 81/53 95 05/08/24 15:17 96.3 F L 90 18 103/54 95 05/08/24 15:09 88 18 104/55 95 05/08/24 15:01 95.2 F L 86 20 112/56 94 L 05/08/24 14:56 95.0 F L 85 20 108/55 94 L 05/08/24 14:51 94.5 F L 81 20 106/50 93 L 05/08/24 14:46 94.3 F L 103 H 20 59/41 93 L 05/08/24 14:41 93.9 F L 108 H 22 63/48 90 L 05/08/24 14:35 93.4 F L 101 H 22 59/39 88 L 05/08/24 14:31 93.2 F L 95 22 68/37 91 L 05/08/24 14:27 92.8 F L 98 22 52/35 05/08/24 14:15 92.3 F L 87 22 57/43 05/08/24 14:11 67/41 05/08/24 14:09 91.6 F L 84 24 71/39 05/08/24 13:56 90.5 F L 88 22 83/50 94 L 05/08/24 13:47 89.8 F L 90 22 75/52 93 L 05/08/24 13:35 89.4 F L 89 22 55/32 94 L 05/08/24 13:15 87.6 F L 81 20 73/37 05/08/24 13:10 87.3 F L 79 18 63/36 05/08/24 12:30 85.3 F L 70 18 85/67 99 05/08/24 12:17 85.1 F L 67 16 77/57 05/08/24 12:06 84.7 F L 63 20 114/56 05/08/24 11:56 68 05/08/24 11:40 88 22 129/50 Intake and Output 05/08/24 05/08/24 05/08/24 06:59 14:59 22:59 Intake Total 11.234 733.103 Output Total 100 Balance 11.234 633.103 Intake: Intake, IV Titration 11.234 453.103 Amount Norepinephrine 4 mg In 453.103 Sodium Chloride 0.9% 250 ml @ 0.03 MCG/KG/MIN 7. 518 mls/hr IV .Q24H [facility] Rx#:[id number] Blood Product 0 280 Rc Pheresis 2 As3 Unit 0 280 [id number] Output: Urine 100 Uretheral (Braun) 100 Other: Weight 65.771 kg -GENERAL: Patient is confused, nonverbal, obtunded and does not follow command. Thin built, mumbling few words, not comprehensible, currently on 6 L of oxygen by nasal cannula, hypothermic maintained on Alejo hugger's. Head exam was generally normal. There was no scleral icterus or corneal arcus. Mucous membranes were moist. HEENT: Pupils are round and equally reacting to light. EOMI. No scleral icterus. No conjunctival pallor. Normocephalic, atraumatic. No pharyngeal erythema. No thyromegaly. CARDIOVASCULAR: S1 and S2 present. No murmurs, rubs, or gallops. Irregular rhythm consistent with atrial fibrillation. PULMONARY: Chest is clear to auscultation, no wheezing , no crackles. ABDOMEN: Soft, nontender, nondistended, normoactive bowel sounds. No palpable organomegaly. MUSCULOSKELETAL: No joint swelling or deformity. EXTREMITIES: No cyanosis, clubbing, or pedal edema. NEUROLOGICAL: Gross neurological examination did not reveal any focal deficits. Generalized weakness examination of the extremities revealed easily palpable radial, femoral and pedal pulses. There was no cyanosis, clubbing or edema. SKIN: No rashes. no petechiae. Multiple areas of skin bruising primarily to falls and trauma involving the upper and lower extremities bilaterally. Results - Laboratory Findings CBC and BMP: 05/08/24 19:55 05/08/24 15:36 ABG ABG pH 6.98 (7.35-7.45) L* 05/08/24 12:22 ABG pCO2 27 mmHg (35-45) L 05/08/24 12:22 ABG pO2 183 mmHg (83-108) H 05/08/24 12:22 ABG O2 Saturation 99.0 % (94-97) H 05/08/24 12:22 PT/INR, D-dimer PT 22.9 sec (10.0-12.5) H 05/08/24 11:55 INR 2.3 (<1.2) H 05/08/24 11:55 Abnormal lab findings: Abnormal Labs 05/08/24 05/08/24 05/08/24 11:54 11:55 11:55 RBC 2.11 L Hgb 6.4 L* Hct 20.4 L RDW 16.2 H Plt Count 42 L PT 22.9 H INR 2.3 H ABG pH ABG pCO2 ABG pO2 ABG HCO3 ABG Total CO2 ABG O2 Saturation VBG pH VBG pCO2 VBG HCO3 Hemoglobin Sodium Potassium Carbon Dioxide BUN Creatinine Glucose POC Glucose (mg/dL) 317 H Plasma Lactic Acid Addison Magnesium Total Bilirubin AST ALT Alkaline Phosphatase Ammonia Creatine Kinase Troponin I Total Protein Albumin Urine Protein Urine RBC Urine Bacteria Urine Mucus Crossmatch 05/08/24 05/08/24 05/08/24 11:55 11:55 11:55 RBC Hgb Hct RDW Plt Count PT INR ABG pH ABG pCO2 ABG pO2 ABG HCO3 ABG Total CO2 ABG O2 Saturation VBG pH VBG pCO2 VBG HCO3 Hemoglobin Sodium 136 L Potassium 6.9 H* Carbon Dioxide 6 L* BUN 62 H Creatinine 2.76 H Glucose 263 H POC Glucose (mg/dL) Plasma Lactic Acid Addison Magnesium 6.5 H* Total Bilirubin 2.8 H AST 1113 H ALT 666 H Alkaline Phosphatase 939 H Ammonia 151 H Creatine Kinase 4444 H* Troponin I 0.127 H* Total Protein 4.6 L Albumin 2.9 L Urine Protein Urine RBC Urine Bacteria Urine Mucus Crossmatch 05/08/24 05/08/24 05/08/24 12:12 12:22 12:22 RBC Hgb Hct RDW Plt Count PT INR ABG pH 6.98 L* ABG pCO2 27 L ABG pO2 183 H ABG HCO3 6 L* ABG Total CO2 7 L ABG O2 Saturation 99.0 H VBG pH VBG pCO2 VBG HCO3 Hemoglobin 5.5 L* Sodium Potassium Carbon Dioxide BUN Creatinine Glucose POC Glucose (mg/dL) 163 H Plasma Lactic Acid Addison Magnesium Total Bilirubin AST ALT Alkaline Phosphatase Ammonia Creatine Kinase Troponin I Total Protein Albumin Urine Protein 4+ H Urine RBC 43 H Urine Bacteria Occasional H Urine Mucus Rare H Crossmatch 05/08/24 05/08/24 05/08/24 12:50 13:13 13:39 RBC Hgb Hct RDW Plt Count PT INR ABG pH ABG pCO2 ABG pO2 ABG HCO3 ABG Total CO2 ABG O2 Saturation VBG pH VBG pCO2 VBG HCO3 Hemoglobin Sodium Potassium Carbon Dioxide BUN Creatinine Glucose POC Glucose (mg/dL) 145 H Plasma Lactic Acid Addsion 21.9 H* Magnesium Total Bilirubin AST ALT Alkaline Phosphatase Ammonia Creatine Kinase Troponin I Total Protein Albumin Urine Protein Urine RBC Urine Bacteria Urine Mucus Crossmatch See Detail 05/08/24 05/08/24 05/08/24 15:07 15:36 15:36 RBC Hgb Hct RDW Plt Count PT INR ABG pH ABG pCO2 ABG pO2 ABG HCO3 ABG Total CO2 ABG O2 Saturation VBG pH 7.22 L VBG pCO2 21 L VBG HCO3 9 L* Hemoglobin Sodium Potassium 6.1 H* Carbon Dioxide 7 L* BUN 67 H Creatinine 2.96 H Glucose 147 H POC Glucose (mg/dL) 182 H Plasma Lactic Acid Addison Magnesium 5.9 H* Total Bilirubin 2.1 H AST 2569 H ALT 1433 H Alkaline Phosphatase 981 H Ammonia Creatine Kinase Troponin I Total Protein 4.5 L Albumin 2.8 L Urine Protein Urine RBC Urine Bacteria Urine Mucus Crossmatch 05/08/24 05/08/24 05/08/24 16:50 19:55 20:32 RBC 2.42 L Hgb 7.5 L Hct 22.4 L RDW 15.9 H Plt Count 37 L PT INR ABG pH ABG pCO2 ABG pO2 ABG HCO3 ABG Total CO2 ABG O2 Saturation VBG pH VBG pCO2 VBG HCO3 Hemoglobin Sodium Potassium Carbon Dioxide BUN Creatinine Glucose POC Glucose (mg/dL) Plasma Lactic Acid Addison 18.0 H* 16.3 H* Magnesium Total Bilirubin AST ALT Alkaline Phosphatase Ammonia Creatine Kinase Troponin I Total Protein Albumin Urine Protein Urine RBC Urine Bacteria Urine Mucus Crossmatch 05/08/24 21:24 RBC Hgb Hct RDW Plt Count PT INR ABG pH ABG pCO2 ABG pO2 ABG HCO3 ABG Total CO2 ABG O2 Saturation VBG pH VBG pCO2 VBG HCO3 Hemoglobin Sodium Potassium Carbon Dioxide BUN Creatinine Glucose POC Glucose (mg/dL) 44 L* Plasma Lactic Acid Addison Magnesium Total Bilirubin AST ALT Alkaline Phosphatase Ammonia Creatine Kinase Troponin I Total Protein Albumin Urine Protein Urine RBC Urine Bacteria Urine Mucus Crossmatch - Diagnostic Findings Chest x-ray: image reviewed Assessment and Plan Plan: Altered mental status, negative CAT scan of the brain, likely secondary to metabolic derangements/metabolic encephalopathy Severe dehydration Acute hypotension, could be hypovolemic versus septic in nature, currently on norepinephrine the patient received a total of 3 L of IV fluids/normal saline and covered with broad-spectrum antibiotics with IV Zosyn Severe lactic acidosis, likely secondary to above, rule out ischemic bowel Acute rhabdomyolysis Acute kidney injury Acute hypothermia Acute hyperkalemia Shock liver, with possibly component of acute liver failure with coagulopathy and elevated ammonia levels and hypoglycemia Acute anemia, no obvious source of GI bleed A-fib, rate controlled Acute hypoxic respiratory failure with bilateral interstitial and alveolar pulmonary infiltrates Multiple osseous lesions involving the cervical spine and ribs and scapula bilaterally. Rule out underlying malignancy Extreme debility with signs of chronic malnourishment Body mass index is 22 Plan: Rewarming process in progress Monitor temperature Continue with bicarb infusion with D5 and 150 milliequivalents of sodium bicarb at rate of 150 cc an hour Continue norepinephrine Maintain mean arterial pressure above 60 Empiric antibiotic coverage with IV Zosyn CAT scan of the abdomen and pelvis Insert Braun catheter Monitor lactic acid level Monitor the white cell count, potassium level and acidosis Monitor CPK Already transfused with a unit of packed RBC Patient will require further workup for the source of cancer if he survives his current event Extremely poor prognosis Monitor blood cares DNR/DNI CODE STATUS Time with Patient: Greater than 30
[2024-05-08 22:21] LABS: INR 2.1 (<1.2); Partial Thromboplastin Time 29.9 sec (22.0-30.0); Prothrombin Time 21.4 sec (10.0-12.5)
[2024-05-08 22:25] LABS: Lactic Acid, Venous 14.5 mmol/L (0.7-2.0)
[2024-05-08 22:27] VITALS: RESP 29
[2024-05-08 22:32] LABS: Albumin 2.5 g/dL (3.5-5.0); Alkaline Phosphatase 1063 U/L (38-126); Anion Gap 21 mmol/L; Blood Urea Nitrogen 78 mg/dL (9-20); Calcium 8.1 mg/dL (8.4-10.2); Carbon Dioxide 13 mmol/L (22-30); Chloride 105 mmol/L (98-107); Glucose 124 mg/dL (74-99); Sodium 139 mmol/L (137-145); Total Protein 4.2 g/dL (6.3-8.2)
[2024-05-08 22:35] LABS: Magnesium 5.8 mg/dL (1.6-2.3); Potassium 6.8 mmol/L (3.5-5.1)
[2024-05-08] MEDS ORDERED: SCOPOLAMINE 1 MG/72 HR PATCH TRANSDERM STA (22:50)
[2024-05-08 22:54] LABS: African American GFR (CKD) 23 (>60 ml/min/1.73 sqM); Non-African American GFR(CKD) 20 (>60 ml/min/1.73 sqM)
[2024-05-08 22:56] LABS: ALT 2203 U/L (4-49)
[2024-05-08 23:20] LABS: AST 4605 U/L (17-59)
[2024-05-08] MEDS: MORPHINE SULFATE (100 MG/2 ML) 100 MG in SODIUM CHLORIDE 0.9% 100 ML IV SCH (23:34)
[2024-05-09 01:45] VITALS: BP 90/58; PULSE 107
--- NOTE | 2024-05-09 05:51 | P.DS ---
Providers Date of admission: 05/08/24 16:31 Attending physician: Mark Woods MD Consults: 05/08/24 16:29 Consult Physician Stat Consulting Provider: Niki Payan Consult Reason/Comments: Critical care management Do you want consulting provider notified?: Yes Primary care physician: Stated None Hospital Course: Patient eventually less than 24 hours from presentation to the hospital given his poor prognosis and the presentation and delay in his presentation he was high risk. Family were aware of the seriousness of his illness Patient on 05/08/2024 at 23: 45 Please refer to the nurse note for more details Please refer to the H&P from 05/08/2024 for more details Plan - Discharge Summary New Discharge Prescriptions: No Action No Known Home Medications Discharge Medication List No Known Home Medications 05/08/24 [History] Follow up Appointment(s)/Referral(s): None,Stated [Primary Care Provider] - 1-2 days Discharge Disposition: - Preliminary Cause of Preliminary Cause of : septic shock and multiorgan failure
[2024-05-09] MEDS ORDERED: PANTOPRAZOLE 40 MG/10 ML VIAL IV SCH (09:00)
--- NOTE | 2024-05-09 13:33 | P.DS ---
Providers Date of admission: 05/08/24 16:31 Attending physician: Mark Woods MD Consults: 05/08/24 16:29 Consult Physician Stat Consulting Provider: Niki Payan Consult Reason/Comments: Critical care management Do you want consulting provider notified?: Yes Primary care physician: Stated None Hospital Course: diagnoses: Shock of unknown cause could be hypovolemic, cardiogenic, versus others. Multiorgan failure Altered mental status with metabolic encephalopathy, associated with possible hepatic encephalopathy Severe Metabolic acidosis Severe sepsis , pneumonia versus other Bilateral pulmonary infiltrates suspicious for pneumonia, differential diagnosis CHF and ARDS Acute hypoxic respiratory failure Patient found on the floor for unknown period, could be up to 2 days with rhabdomyolysis Multiple osseous lesion suspicious for metastatic disease involving the cervical spines, multiple ribs and bilateral scapulae, unknown source Acute renal failure with hyperkalemia Lactic acidosis Severe anemia requiring blood transfusion associated with severe thrombocytopenia Coagulopathy A-fib with controlled rate Hospital course: This is a 73 years old male With past medical history is limited currently. Presents because he was found on the floor by his family. Multiple family members at bedside including his sister. Who states at home he lives alone, he uses a walker with a seat to transfer from 1 room to another. Last seen fine was Wednesday about 2 days ago at 3:30 PM when they talked on the phone Patient has lately been complaining from constipation and he has been drinking a lot of magnesium citrate to help his bowel movement He smokes unknown amount, his sister thinks about half pack per day, he used to drink, but currently unknown maybe he quit per family. No illicit drugs Patient was found on the floor by family members and brought to emergency room. Patient is hypothermic and Alejo hugger is applied also is hypotensive received several boluses and tachypneic and hypoxic. Currently on 6 L oxygen via nasal cannula He has abnormal labs, WBC normal at 8.6, hemoglobin low 6.4 and he is getting unit of blood transfusion, platelet count is low at 47 Creatinine elevated 2.9 potassium-6.1 AST is high at 2569 and ALT 1433 and bilirubin 2.1, INR is 2.3. EKG showing A-fib with a rate of 72 pH is low 7.2 and pCO2 low 27 Chest x-ray showing bilateral infiltrates suspicious for CHF versus pneumonia versus atypical infection Head and cervical CT is negative for acute intracranial process, showing chronic changes of the white matter. Also there is acute mildly displaced T1 spinous process fracture but there are multiple lesions found on the cervical spine, ribs and bilateral scapula suspicious for metastasis Troponin is elevated at 0.127 Ammonia level is elevated at 151 Lactic acid is extremely high 21.9 at next came back to 18 Magnesium is very elevated 5.9 Patient's was admitted to the intensive care unit and he was started on multiple medication including IV fluid, Levophed, antibiotics Patient however was still in critical condition Family were at bedside, eventually they made him comfort care and patient shortly thereafter. His prognosis was very poor since admission Plan - Discharge Summary New Discharge Prescriptions: No Action No Known Home Medications Discharge Medication List No Known Home Medications 05/08/24 [History] Follow up Appointment(s)/Referral(s): None,Stated [Primary Care Provider] - 1-2 days Discharge Disposition: - Preliminary Cause of Preliminary Cause of : shock, with multiorgan failure
--- NOTE | 2024-05-09 15:10 | CDI ---
Documentation Clarification Form Date: 05/09/2024 02:52:22 PM From: Darleen Barker Phone: Admit Date: 05/08/2024 04:31:00 PM Patient Name: Wayne Luque Visit Number: [id number] Discharge Date: 05/08/2024 11:45:00 PM ATTENTION: The Clinical Documentation Specialists (CDI) and [facility] Coding Staff appreciate your assistance in clarifying documentation. Please respond to the clarification below the line at the bottom and electronically sign. The CDI & [facility] Coding staff will review the response and follow-up if needed. Please note: Queries are made part of the Legal Health Record. If you have any questions, please contact the author of this message via ITS. Doctor/Provider: Mark E Sheet Acute rhabdomyolysis is documented per ED and all following notes. Additional clarification regarding the type of rhabdomyolysis is requested. History/Risk Factors: 73yo M, sepsis w shock, hypovolemic, dehydration, multi- organ failure, metabolic encephalopathy, hepatic encephalopathy, severemetabolic acidosis, PNA, AHRF, rhabdomyolysis, Multiple osseouslesionsuspicious formets, GORDON, hyperkalemia, lactic acidosis, anemia sp PRBC, thrombocytopenia, coagulopathy, A-fib Clinical Indicators: Patient found on the floor for unknown period,could beup to 2 days with Initial T 85.1 F WBC 8.5 HBG 6.4 Plt 42 INR of 2.3 PTof 22.9 PTT of 29 Na 136 Potassium 6.9 BUN 62 Cr: 0.6 Glucose 317 LFTselevated Serum ammonia 151 CPK was 4444 Troponin 0.1 Albumin 2.9 UA + for plus for protein and 5 WBCs. Treatment: Rewarming process in progress. Monitor temperature. Continue with bicarbinfusionwith D5 and 150 milliequivalents of sodium bicarb at rate of 150 cc an hour. Continuenorepinephrine. Maintain mean arterialpressureabove 60. Empiric antibiotic coverage with IV Zosyn. CAT scan of the abdomen and pelvis. InsertFoley catheter. Monitor lactic acid level. Monitor the white cell count, potassium level andacidosis. Monitor CPK. Alreadytransfusedwith a unit ofpackedRBC. Patient will require further workup for the source ofcancerif he survives his current event. Extremely poor prognosis. Monitor blood cares. DNR/DNI CODE STATUS. Family made Pt comfort care and he . Please clarify the type of rhabdomyolysis, if known: [ x] Traumatic rhabdomyolysis due to fall [ ] Traumatic rhabdomyolysis due to prolonged immobility [ ] Non traumatic rhabdomyolysis due (please specify) [ ] Non traumatic rhabdomyolysis due to infection (please specify) [ ] Other, please specify [ ] Unable to Determine (Template Last Revised: July 2020) MTDD
--- NOTE | 2024-05-09 15:23 | CDI ---
Documentation Clarification Form Date: 05/09/2024 03:11:21 PM From: Darleen Barker Phone: Admit Date: 05/08/2024 04:31:00 PM Patient Name: Wayne Luque Visit Number: [id number] Discharge Date: 05/08/2024 11:45:00 PM ATTENTION: The Clinical Documentation Specialists (CDI) and [facility] Coding Staff appreciate your assistance in clarifying documentation. Please respond to the clarification below the line at the bottom and electronically sign. The CDI & [facility] Coding staff will review the response and follow-up if needed. Please note: Queries are made part of the Legal Health Record. If you have any questions, please contact the author of this message via ITS. Doctor/Provider: Mark E Sheet Chronic malnourishment is documented per 05/08 Consult Note. Clarification regarding the severity of malnutrition is requested. History/Risk Factors: 73yo M, sepsis w shock, hypovolemic, hypothermia, PNA, dehydration, multi-organ failure, metabolic encephalopathy, hepatic encephalopathy, severe metabolic acidosis, AHRF, rhabdo, multiple osseous lesion suspicious for mets, GORDON, hyperkalemia, anemia sp PRBC, thrombocytopenia, coagulopathy, A-fib, smoker Clinical Indicators: Current BMI: 22 GENERAL: unresponsive and does appear somewhatcachectic; Extreme debility Treatment: Extremely poor prognosis. Monitor blood cares. DNR/DNI. Family made Pt comfort care. Pt <24hr IP. Please clarify the severity of malnutrition, if known: [ x] Cachexia, NOS [ ] Mild Protein-Calorie Malnutrition [ ] Moderate Protein-Calorie Malnutrition [ ] Severe Protein-Calorie Malnutrition [ ] Malnutrition, unknown severity [ ] Other condition, please specify [ ] Unable to Determine (Template Last Revised: October 2022) MTDD
== END 2024-05-08 23:45 | disposition expired | DRG 871 ==
LOC: EC 11:37 → 2SICU 16:31
PROVIDERS: ADMIT Internal Medicine; ATTEND Internal Medicine
PROC: 30233N1 Transfusion of Nonautologous Red Blood Cells into Peripheral Vein, Percutaneous Approach (ICD-10-PCS; principal; 2024-05-08)
PROC: 3E033XZ Introduction of Vasopressor into Peripheral Vein, Percutaneous Approach (ICD-10-PCS; 2024-05-08)
PROC: 6A550Z0 Pheresis of Erythrocytes, Single (ICD-10-PCS; 2024-05-08)
DX: A41.9 Sepsis, unspecified organism (principal); G93.41 Metabolic encephalopathy; K72.00 Acute and subacute hepatic failure without coma; R65.21 Severe sepsis with septic shock; J96.01 Acute respiratory failure with hypoxia; J18.9 Pneumonia, unspecified organism; S22.019A Unspecified fracture of first thoracic vertebra, initial encounter for closed fracture; C79.51 Secondary malignant neoplasm of bone; R64 Cachexia; E87.21 Acute metabolic acidosis; D68.9 Coagulation defect, unspecified; N17.9 Acute kidney failure, unspecified; Z51.5 Encounter for palliative care; Z66 Do not resuscitate; K76.82 Hepatic encephalopathy; T79.6XXA Traumatic ischemia of muscle, initial encounter; E83.41 Hypermagnesemia; E87.5 Hyperkalemia; D69.6 Thrombocytopenia, unspecified; C80.1 Malignant (primary) neoplasm, unspecified; R68.0 Hypothermia, not associated with low environmental temperature; I48.91 Unspecified atrial fibrillation; D63.0 Anemia in neoplastic disease; E86.1 Hypovolemia; E86.0 Dehydration; R73.9 Hyperglycemia, unspecified; K59.09 Other constipation; F17.210 Nicotine dependence, cigarettes, uncomplicated; R53.81 Other malaise; Z86.73 Personal history of transient ischemic attack (TIA), and cerebral infarction without residual deficits; Z86.79 Personal history of other diseases of the circulatory system; Z68.22 Body mass index [BMI] 22.0-22.9, adult
CPT/HCPCS: 36415; 36430; 36600; 51702; 70450; 70486; 71045; 72125; 74176; 80053; 80306; 80320; 81001; 82140; 82550; 82803; 82805; 83605; 83735; 84145; 84484; 85025; 85610; 85730; 86850; 86900; 86901; 86920; 87040; 93005; 96361; 96365; 96366; 96368; 96375; 96376; 99291